=== PATIENT | male | born 1955 | race Caucasian/White ===

== ENCOUNTER 2018-10-08 06:07 | Observation (INO) | payer OTHER, MEDICARE ==
[~2018-10-08] VITALS: Ht 175.3 cm; Wt 76.9 kg
[~2018-10-08 06:07] MED LIST: AZITHROMYCIN500 MG PO; BACLOFEN10 MG PO; CARVEDILOL12.5 MG PO; CELEBREX200 MG PO; EFFEXOR PO; EFFEXOR XR150 MG PO; GABAPENTIN400 MG PO; IMITREX PO; LISINOPRIL-HCT1 EACH PO; LOTREL 5-20 MG1 EACH PO; OXYCONTIN PO; OXYCONTIN80 MG PO; PANTOPRAZOLE SO40 MG PO; PROTONIX PO; RAMIPRIL5 MG PO; SOMA PO; SOMA350 MG PO; ULTRAM50 MG PO
--- OUTSIDE RECORDS SUMMARY | 2018-10-08 06:12 | XMS REPORT | Continuity of Care Document ---
Author Author [facility] [place] Address Unknown Phone Unavailable Problems Problem Status Onset Date Classification Date Reported Comments Source Spasticity Active Problem 12/25/2017 Gregory Stileser Spinal cord injury, C1-C7, sequela Active Problem 12/25/2017 Gregory Stileser Thoracic radiculopathy Active Problem 12/25/2017 Gregory Mosquera Myositis of other site, unspecified myositis type Active Problem 12/25/2017 Gregory Eveline Myalgia Active Problem 12/25/2017 Gregory Eveline Cervical post-laminectomy syndrome Active Problem 12/25/2017 Gregory Mosquera Pain of thoracic facet joint Active Problem 12/25/2017 Gregory Mosquera Chronic pain syndrome Active Problem 12/25/2017 Gregory Mosquera 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 Problem 12/25/2017 Gregory Mosquera Medications Medication Details Route Status Patient Instructions Ordering Provider Order Date Source Amitriptyline HCl not defined Orally Active 100 MG Orally Fan 10/16/2016 Gregory Mosquera Baclofen not defined Intrathecal Active 10 MG/20ML Intrathecal Fan 10/16/2016 Gregory Mosquera Lisinopril-Hydrochlorothiazide not defined Orally Active 20-12.5 MG Orally Fan 10/16/2016 Gregory Mosquera Acetaminophen-Codeine not defined Orally Active 300-30 MG Orally Fan 10/16/2016 Gregory Mosquera Carvedilol not defined Orally Active 12.5 MG Orally Fan 10/16/2016 Gregory Mosquera Celecoxib not defined Orally Active 200 MG Orally Fan Gregory Mosquera Venlafaxine HCl ER not defined Orally Active 150 MG Orally Fan Gregory Mosquera Pantoprazole Sodium not defined Orally Active 40 MG Orally Fan Gregory Mosquera Carisoprodol not defined Orally Active 350 MG Orally Fan Gregory Mosquera Diazepam not defined Rectal Active 10 MG Rectal Fan Gregory Mosquera Tramadol HCl not defined Orally Active 50 MG Orally Fan Gregory Mosquera Ramipril not defined Orally Active 5 MG Orally [facility] Gregory Stileser OxyContin not defined Orally Active 80 MG Orally [facility] Gabapentin not defined Orally Active 400 MG Orally [facility] Gregory Stileser Gabapentin not defined Orally Active 400 MG Orally [facility] Gregory Stileser Ramipril not defined Orally Active 5 MG Orally [facility] Gregory Mosquera Venlafaxine HCl ER not defined Orally Active 150 MG Orally [facility] Carisoprodol not defined Orally Active 350 MG Orally [facility] Gregory Mosquera Celecoxib not defined Orally Active 200 MG Orally [facility] Pantoprazole Sodium not defined Orally Active 40 MG Orally [facility] OxyContin not defined Orally Active 80 MG Orally [facility] Tramadol HCl not defined Orally Active 50 MG Orally [facility] Diazepam not defined Rectal Active 10 MG Rectal [facility] Acetaminophen-Codeine Unknown Orally Active 300-30 MG Orally [facility] Carvedilol Unknown Orally Active 12.5 MG Orally [facility] Baclofen Unknown Intrathecal Active 10 MG/20ML Intrathecal [facility] Lisinopril-Hydrochlorothiazide Unknown Orally Active 20-12.5 MG Orally [facility] Amitriptyline HCl Unknown Orally Active 100 MG Orally [facility] Gregory Stileser Allergies, Adverse Reactions, Alerts Substance Category Reaction Severity Reaction type Status Date Reported Comments Source N.K.D.A. Adverse Reaction Info Not Available Adverse Reaction Active 05/17/2017 Gregory Mosquera Immunizations Immunization Date Given Site Status Last Updated Comments Source Results Order Name Results Value Reference Range Date Interpretation Comments Source Vital Signs Vital Sign Value Date Comments Source Weight 155 05/17/2017 Gregory Mosquera Height 67.4 05/17/2017 Gregory Stileser Temperature Oral (F) 97.5 F 05/17/2017 Gregory Stileser Heart Rate 78 05/17/2017 Gregory Mosquera Diastolic (mm Hg) 70 05/17/2017 Gregory Mosquera Systolic (mm Hg) 162 05/17/2017 Gregory Mosquera Weight 161.5 10/16/2016 Gregory Mosquera Height 67.4 10/16/2016 Gregory Mosquera Temperature Oral (F) 98.0 F 10/16/2016 Gregory Mosquera Heart Rate 88 10/16/2016 Gregory Mosquera Diastolic (mm Hg) 72 10/16/2016 Gregory Mosquera Systolic (mm Hg) 126 10/16/2016 Gregory Mosquera Height 67.4 08/02/2016 Gregory Mosquera Temperature Oral (F) 97.2 F 08/02/2016 Gregory Mosquera Diastolic (mm Hg) 80 08/02/2016 Gregory Mosquera Systolic (mm Hg) 160 08/02/2016 Gregory Mosquera Encounters Location Location Details Encounter Type Encounter Number Reason For Visit Attending Provider ADM Date DC Date Status Source Erik Mosquera MD POST OP PROCEDURE [id number] 08/02/2016 08/02/2016 Gregory Mosquera MD POST OP PROCEDURE [id number] 08/02/2016 08/02/2016 Gregory Mosquera MD POST OP PROCEDURE [id number] 08/02/2016 08/02/2016 Gregory Mosquera MD CX APPOINTMENT [id number] 08/31/2016 08/31/2016 Gregory Mosquera MD CX APPOINTMENT [id number] 08/31/2016 08/31/2016 Gregory Mosquera MD SCHEDULE A FU [id number] 09/21/2016 09/21/2016 Gregory Mosquera Procedures Procedure Code Date Perfomer Comments Source
--- OUTSIDE RECORDS SUMMARY | 2018-10-08 06:12 | XMS REPORT ---
Author Author Jori Chavira Organization [employer] Address Unknown Phone Unavailable Care Team Providers Care Premises Technician Name Role Phone Jori Chavira CP Unavailable Allergies No Known Allergies Problems Problem Type Condition Code Onset Dates Condition Status Problem Spasticity R25.2 Active Problem Spinal cord injury, C1-C7, sequela S14.109S Active Problem Thoracic radiculopathy M54.14 Active Problem Myositis of other site, unspecified myositis type M60.9 Active Problem Myalgia M79.1 Active Problem Cervical post-laminectomy syndrome M96.1 Active Problem Pain of thoracic facet joint M54.6 Active Problem Chronic pain syndrome G89.4 Active Problem Spondylosis of thoracic region without myelopathy or radiculopathy M47.814 Active Medications No Known Medications Results No Known Results Summary Purpose [facility] [employer] Submission
--- OUTSIDE RECORDS SUMMARY | 2018-10-08 06:12 | XMS REPORT ---
Author Author Jori Chavira Organization [employer] Address Unknown Phone Unavailable Care Team Providers Care Vinyl Dipper Name Role Phone Jori Chavira CP Unavailable [...] Medications Results No Known Results Summary Purpose [employer] Submission
--- OUTSIDE RECORDS SUMMARY | 2018-10-08 06:12 | XMS REPORT ---
Author Author Jori Chavira [facility] [employer] Address Unknown Phone Unavailable Care Team Providers Care Packer Dried Beef Name Role Phone Jori Chavira Unavailable Allergies, Adverse Reactions, Alerts Substance Reaction Event Type N.K.D.A. Info Not Available Non Drug Allergy Encounters Encounter Location Date POST OP PROCEDURE Erik Mosquera MD Aug 02, 2016 Problems Problem Type Condition ICD-9 Code Onset Dates Condition Status Assessment Thoracic radiculopathy M54.14 Active Problem Spasticity R25.2 Active Problem Spinal cord injury, C1-C7, sequela S14.109S Active Problem Myositis of other site, unspecified myositis type M60.9 Active Problem Myalgia M79.1 Active Problem Thoracic radiculopathy M54.14 Active Problem Spondylosis of thoracic region without myelopathy or radiculopathy M47.814 Active Problem Pain of thoracic facet joint M54.6 Active Problem Chronic pain syndrome G89.4 Active Problem Cervical post-laminectomy syndrome M96.1 Active Assessment Spinal cord injury, C1-C7, sequela S14.109S Active Assessment Spasticity R25.2 Active Assessment Cervical post-laminectomy syndrome M96.1 Active Assessment Spondylosis of thoracic region without myelopathy or radiculopathy M47.814 Active Assessment Pain of thoracic facet joint M54.6 Active Assessment Myalgia M79.1 Active Assessment Chronic pain syndrome G89.4 Active Assessment Myositis of other site, unspecified myositis type M60.9 Active Medications Medication Code System Code Instructions Start Date End Date Status Dosage Tramadol HCl [facility] [address]-68 50 MG Orally Active Unknown Gabapentin [facility] [address]-26 400 MG Orally Active Unknown Acetaminophen-Codeine [facility] [address]-47 300-30 MG Orally Active Unknown Celecoxib [facility] [address]-88 200 MG Orally Active Unknown Venlafaxine HCl ER [facility] [address]-19 150 MG Orally Active Unknown OxyContin [facility] [address]-38 80 MG Orally Active Unknown Diazepam [facility] [address]-76 10 MG Rectal Active Unknown Carvedilol [facility] [address]-26 12.5 MG Orally Active Unknown Carisoprodol [facility] [address]-04 350 MG Orally Active Unknown Baclofen [facility] [address]-40 10 MG/20ML Intrathecal Active Unknown Lisinopril-Hydrochlorothiazide [facility] [address]-05 20-12.5 MG Orally Active Unknown Pantoprazole Sodium [facility] [address]-45 40 MG Orally Active Unknown Ramipril [facility] [address]-81 5 MG Orally Active Unknown Amitriptyline HCl [facility] [address]-69 100 MG Orally Active Unknown Social History Social History Element Qualifiers Date Reported Diet: no. Aug 02, 2016 Tobacco Use: . Are you a:: never smoker Aug 02, 2016 Pets: none. Aug 02, 2016 Marital Status: . Aug 02, 2016 Sexual Hx: . Had sex in the last 12 months (vaginal, oral, or anal)?: No Aug 02, 2016 Caffeine: no. Aug 02, 2016 Exercise: no. Aug 02, 2016 Alcohol: no. Aug 02, 2016 Travel outside [place]: no. Aug 02, 2016 Occup. exposure: none. Aug 02, 2016 Occupation: unemployed. Aug 02, 2016 Vital Signs Date/Time: Aug 02, 2016 Height 67.4 in Temperature 97.2 F Blood Pressure Diastolic 80 mm Hg Blood Pressure Systolic 160 mm Hg Summary Purpose [employer] Submission
--- OUTSIDE RECORDS SUMMARY | 2018-10-08 06:12 | XMS REPORT ---
Author Author Jori Chavira Organization [employer] Address Unknown Phone Unavailable Care Team Providers Care Hoistman Name Role Phone Jori Chavira CP Unavailable [...] Medications Results No Known Results Summary Purpose [employer] Submission
--- OUTSIDE RECORDS SUMMARY | 2018-10-08 06:12 | XMS REPORT ---
Author Author Jori Chavira Organization [employer] Address Unknown Phone Unavailable Care Team Providers Care Flour Mixer Helper Name Role Phone Jori Chavira CP Unavailable [...] Active Problem Cervical post-laminectomy syndrome M96.1 Active Medications No Known Medications Results No Known Results Summary Purpose [employer] Submission
--- OUTSIDE RECORDS SUMMARY | 2018-10-08 06:12 | XMS REPORT ---
Author Author Jori Chavira Organization [employer] Address Unknown Phone Unavailable Care Team Providers Care Certified Fire Investigator Name Role Phone Jori Chavira CP Unavailable [...] Medications Results No Known Results Summary Purpose [employer] Submission
--- OUTSIDE RECORDS SUMMARY | 2018-10-08 06:12 | XMS REPORT ---
Author Author Jori Chavira Organization [employer] Address Unknown Phone Unavailable Care Team Providers Care Resident Care Director Name Role Phone Jori Chavira Unavailable Allergies, Adverse Reactions, Alerts Substance Reaction Event Type N.K.D.A. Info Not Available Non Drug Allergy Problems Problem Type Condition Code Onset Dates Condition Status Assessment Thoracic [...] without myelopathy or radiculopathy M47.814 Active Assessment Spinal cord injury, C1-C7, sequela [...] Instructions Start Date End Date Status Dosage Celecoxib [facility] 84219753035 200 MG Orally Active not defined Venlafaxine HCl ER ND 47051441286 150 MG Orally Active not defined Pantoprazole Sodium [facility] 64753509694 40 MG Orally Active not defined Carisoprodol [facility] 19392999961 350 MG Orally Active not defined Diazepam [facility] 93962951103 10 MG Rectal Active not defined Tramadol HCl ND 48273713040 50 MG Orally Active not defined Ramipril [facility] 11131443869 5 MG Orally Active not defined OxyContin [facility] 28734691413 80 MG Orally Active not defined Gabapentin [facility] 18650764726 400 MG Orally Active not defined Vital Signs Date/Time: May 17, 2017 BMI 23.99 Index Weight 155 lbs Height 67.4 in Temperature 97.5 F Cardiac Monitoring Heart Rate 78 /min Blood Pressure Diastolic 70 mm Hg Blood Pressure Systolic 162 mm Hg Results No Known Results Summary Purpose [employer] Submission
--- OUTSIDE RECORDS SUMMARY | 2018-10-08 06:12 | XMS REPORT ---
Author Author Jori Chavira Organization [employer] Address Unknown Phone Unavailable Care Team Providers Care Fruit Canner Name Role Phone Jori Chavira CP Unavailable [...] Medications Results No Known Results Summary Purpose [employer] Submission
--- OUTSIDE RECORDS SUMMARY | 2018-10-08 06:12 | XMS REPORT ---
Author Author Jori Chavira Organization [employer] Address Unknown Phone Unavailable Care Team Providers Care Office Messenger Name Role Phone Jori Chavira CP Unavailable [...] Problem Cervical post-laminectomy syndrome M96.1 Active Medications Medication Code System Code Instructions Start Date End Date Status Dosage Gabapentin [facility] [address]-39 400 MG Orally Active not defined Ramipril [facility] [place] [address]-04 5 MG Orally Active not defined Venlafaxine HCl ER [facility] [place] [address]-95 150 MG Orally Active not defined Carisoprodol [facility] [address]-50 350 MG Orally Active not defined Celecoxib [facility] [place] [address]-78 200 MG Orally Active not defined Pantoprazole Sodium [facility] [address]-20 40 MG Orally Active not defined OxyContin [facility] [address]-93 80 MG Orally Active not defined Tramadol HCl [facility] [address]-77 50 MG Orally Active not defined Diazepam [facility] [address]-93 10 MG Rectal Active not defined Results No Known Results Summary Purpose [employer] Submission
--- OUTSIDE RECORDS SUMMARY | 2018-10-08 06:12 | XMS REPORT ---
Author Author Jori Chavira Organization [employer] Address Unknown Phone Unavailable Care Team Providers Care Soldering Machine Operator Name Role Phone Jori Chavira Unavailable Encounters Encounter Location Date POST OP PROCEDURE Erik Mosquera MD Aug 02, 2016 CX APPOINTMENT Erik Mosquera MD Aug 31, 2016 Problems Problem Type Condition ICD-9 Code Onset Dates Condition Status Problem Spasticity [...] Active Problem Cervical post-laminectomy syndrome M96.1 Active Social History Social History Element Qualifiers Date Reported Diet: no. Aug 31, 2016 Tobacco Use: . Are you a:: never smoker Aug 31, 2016 Pets: none. Aug 31, 2016 Marital Status: . Aug 31, 2016 Sexual Hx: . Had sex in the last 12 months (vaginal, oral, or anal)?: No Aug 31, 2016 Caffeine: no. Aug 31, 2016 Exercise: no. Aug 31, 2016 Alcohol: no. Aug 31, 2016 Travel outside [place]: no. Aug 31, 2016 Occup. exposure: none. Aug 31, 2016 Occupation: unemployed. Aug 31, 2016 Summary Purpose [employer] Submission
--- OUTSIDE RECORDS SUMMARY | 2018-10-08 06:12 | XMS REPORT ---
Author Author Jori Chavira Organization [employer] Address Unknown Phone Unavailable Care Team Providers Care Cardiology Clinical Consultant Name Role Phone Jori Chavira Unavailable Encounters Encounter Location Date POST OP PROCEDURE Erik Mosquera MD Aug 02, 2016 CX APPOINTMENT Erik Mosquera MD Aug 31, 2016 SCHEDULE A FU Erik Mosquera MD September 21, 2016 Problems Problem Type Condition ICD-9 Code [...]
[2018-10-08] MEDS ORDERED: SODIUM CHLORIDE 0.9% 1000ML 1,000 ML IV STA (06:13)
[2018-10-08] MEDS ORDERED: PANTOPRAZOLE 40 MG 10ML VIAL IV STA (06:13)
[2018-10-08] MEDS ORDERED: ONDANSETRON HCL INJ 2MG/ML 2ML 2 MG/ML VIAL IV ONE (06:15)
[2018-10-08] MEDS ORDERED: HYDROMORPHONE 2MG/ML 2 MG/ML ML IV ONE ×2 (06:15→09:30)
[2018-10-08] MEDS ORDERED: DIATRIZOATE MEGL/DIATRIZOA SOD 30 ML BTL PO ONE (06:43)
[2018-10-08 08:06] LABS: BASOPHILS % 0.3 % (0.0-1.0); EOSINOPHILS % 0.1 % (0.0-6.0); HEMATOCRIT 33.4 % (38.2-49.6); HEMOGLOBIN 10.2 g/dL (14.0-18.0); LYMPHOCYTES # (AUTO) 1.3 (1.0-3.2); LYMPHOCYTES % 12.4 % (18.0-39.1); MEAN CORPUSCULAR HEMOGLOBIN 25.4 pg (28-32); MEAN CORPUSCULAR HGB CONC 30.5 g/dL (31-35); MEAN CORPUSCULAR VOLUME 83.3 fL (81-99); MONOCYTES # (AUTO) 0.4 (0.2-0.8); NEUTROPHILS # (AUTO) 8.4 (2.1-6.9); NEUTROPHILS % 82.8 % (38.7-80.0); PLATELET COUNT 375 x10e3/uL (140-360); RED BLOOD COUNT 4.01 x10e6/uL (4.3-5.7); RED CELL DISTRIBUTION WIDTH 16.9 % (11.7-14.4)
[2018-10-08 08:22] LABS: ALANINE AMINOTRANSFERASE 11 IU/L (0-55); ALKALINE PHOSPHATASE 77 IU/L (40-150); AMYLASE 108 U/L (25-125); ANION GAP 14.6 mmol/L (8-16); BLOOD UREA NITROGEN 15 mg/dL (7-26); BUN/CREATININE RATIO 17 (6-25); CALCIUM 9.9 mg/dL (8.4-10.2); CARBON DIOXIDE 24 mmol/L (22-29); CHLORIDE 102 mmol/L (98-107); EST GLOMERULAR FILTRATION RATE > 60 ML/MIN (60-); GLUCOSE 121 mg/dL (74-118); LIPASE 20 U/L (8-78); MAGNESIUM 1.7 MG/DL (1.3-2.1); POTASSIUM 3.6 mmol/L (3.5-5.1); SODIUM 137 mmol/L (136-145)
[2018-10-08] MEDS ORDERED: HYDROMORPHONE 1MG/1ML INJ IV STA (09:22)
[2018-10-08 09:23] LABS: CREATINE KINASE MB 2.3 ng/mL (0-5.0)
[2018-10-08 09:28] LABS: BACTERIA,URINE RARE /HPF; EPITHELIAL CELLS,URINE FEW /LPF
[2018-10-08 09:29] LABS: CLARITY,URINE CLEAR (CLEAR); COLOR,URINE YELLOW (YELLOW); RBC,URINE 0-5 /HPF (0-5); WBC,URINE (MAN) 0-5 /HPF (0-5)
[2018-10-08] MEDS ORDERED: ONDANSETRON HCL INJ 2MG/ML 2ML 2 MG/ML VIAL IV STA ×2 (09:29→10:05)
[2018-10-08 09:30] LABS: KETONES,URINE 3+ (NEGATIVE); LEUKOCYTE ESTERASE ,URINE NEGATIVE (NEGATIVE); NITRITE,URINE NEGATIVE (NEGATIVE); PROTEIN,URINE DIPSTICK TRACE (NEGATIVE); URINE UROBILINOGEN 1 mg/dL (0.2 - 1)
[2018-10-08 09:31] LABS: BILIRUBIN,URINE 1+ (NEGATIVE)
[2018-10-08] MEDS ORDERED: HYDROMORPHONE 2MG/ML 2 MG/ML ML ONE (09:33)
[2018-10-08] MEDS ORDERED: ONDANSETRON HCL INJ 2MG/ML 2ML 2 MG/ML VIAL ONE (09:34)
--- NOTE | 2018-10-08 09:56 | Diagnostic Imaging Report ---
PROCEDURE: CT ABDOMEN AND PELVIS WITH CONTRAST TECHNIQUE: The abdomen and pelvis were scanned utilizing a multidetector helical scanner from the diaphragm to the lesser trochanter after the IV administration of 100 cc of Isovue 370 and the oral administration of water. Coronal and sagittal multiplanar reformations were obtained. DLP: 319.07 mGy-cm COMPARISON: [facility], CT, CT ABDOMEN/PELVIS W, 05/07/2014, 18:05. INDICATIONS: NAUSEA, VOMTING FINDINGS: LOWER THORAX: There is coronary artery calcification. Minimal right middle and lower lobe atelectasis. HEPATOBILIARY: Mild fatty infiltration of the liver. No focal hepatic lesions. No biliary ductal dilatation. SPLEEN: No splenomegaly. PANCREAS: No focal masses or ductal dilatation. ADRENALS: No adrenal nodules. KIDNEYS/URETERS: No hydronephrosis, stones, or solid mass lesions. PELVIC ORGANS/BLADDER: Unremarkable. PERITONEUM / RETROPERITONEUM: No free air or fluid. LYMPH NODES: No lymphadenopathy. VESSELS: There is atherosclerotic vascular calcification. GI TRACT: Mildly prominent loops of small bowel may represent enteritis. BONES AND SOFT TISSUES: Vertebroplasty cement within the L1 and L3 vertebral body. Compression deformity of T12 is unchanged. Bilateral total hip replacements render a significant amount of streak artifact of the pelvis. Injection granulomas in the gluteal regions. IMPRESSION: 1. Mildly prominent loops of small bowel may represent enteritis. 2. Mild fatty infiltration of the liver without focal abnormality. Rene You D.O. Dictated by: Rene You D.O. on 10/08/2018 at 9:56 Electronically approved by: Rene You D.O. on 10/08/2018 at 9:56
[2018-10-08] MEDS ORDERED: MORPHINE SULFATE 2 MG/ML SYR 1ML IV PRN (10:45)
--- OUTSIDE RECORDS SUMMARY | 2018-10-08 10:58 | XMS REPORT ---
Author Author [facility] Address Unknown Phone Unavailable Care Team Providers Care Garnetter Name Role Phone Fifi LUND Unavailable Unavailable Problems This patient has no known problems. Allergies, Adverse Reactions, Alerts This patient has no known allergies or adverse reactions. Medications This patient has no known medications. Results Test Description Test Time Test Comments Text Results Atomic Results Result Comments CT ABDOMEN/PELVIS W 2018-10-08 09:56:00 [place] [address] Patient Name: SHARRI SAUER MR #: [id number] : 1955 Age/Sex: 62/M Req #: [id number] Adm Physician: Ordered by: GREG ESQUIVEL MD Report #: [id number] Location: ER Room/Bed: Procedure: [id number] CT/CT ABDOMEN/PELVIS W Exam Date: 10/08/18 Exam Time: 919 REPORT STATUS: Signed PROCEDURE: CT ABDOMEN AND PELVIS WITH CONTRAST TECHNIQUE: The abdomen and pelvis were scanned utilizing a multidetector helical scanner from the diaphragm to the lesser trochanter after the IV administration of 100 cc of Isovue 370 and the oral administration of water. Coronal and sagittal multiplanar reformations were obtained. DLP: 319.07 mGy-cm COMPARISON: [facility], CT, CT ABDOMEN/PELVIS W, 05/07/2014, 18:05. INDICATIONS: NAUSEA, VOMTING FINDINGS: LOWER THORAX: There is coronary artery calcification. Minimal right middle and lower lobe atelectasis. HEPATOBILIARY: Mild fatty infiltration of the liver. No focal hepatic lesions. No biliary ductal dilatation. SPLEEN: No splenomegaly. PANCREAS: No focal masses or ductal dilatation. ADRENALS: No adrenal nodules. KIDNEYS/URETERS: No hydronephrosis, stones, or solid mass lesions. PELVIC ORGANS/BLADDER: Unremarkable. PERITONEUM / RETROPERITONEUM: No free air or fluid. LYMPH NODES: No lymphadenopathy. VESSELS: There is atherosclerotic vascular calcification. GI TRACT: Mildly prominent loops of small bowel may represent enteritis. BONES AND SOFT TISSUES: Vertebroplasty cement within the L1 and L3 vertebral body. Compression deformity of T12 is unchanged. Bilateral total hip replacements render a significant amount of streak artifact of the pelvis. Injection granulomas in the gluteal regions. IMPRESSION: 1. Mildly prominent loops of small bowel may represent enteritis. 2. Mild fatty infiltration of the liver without focal abnormality. Chichi You D.O. Dictated by: Chichi You D.O. on 10/08/2018 at 9:56 Electronically approved by: Chichi You D.O. on 10/08/2018 at 9:56 Dictated By: CHICHI YOU DO [id number] Transcribed By: KAVYA on 10/08/18 0956 COPY TO: GREG ESQUIVEL MD
[2018-10-08] MEDS: SODIUM CHLORIDE 0.9% 1000ML 1,000 ML IV SCH ×2 (11:10→20:35)
--- NOTE | 2018-10-08 12:12 | NUR ---
Walking rounds with JOELLEN Marr. Patient in no distress at this time.
--- NOTE | 2018-10-08 12:13 | NUR ---
Bedside rounds completed with Иван CUENCA. Assumed care, pt is in no acute distress at this time.
[2018-10-08] MEDS ORDERED: SODIUM CHLORIDE 0.9% 50ML 50 ML ONE (13:04)
[2018-10-08] MEDS ORDERED: IOPAMIDOL 370 MG/ML 200 ML INFUS..BTL INJ ONE (13:04)
[2018-10-08] MEDS ORDERED: MORPHINE SULFAT30 M2 PO (13:31)
[2018-10-08] MEDS ORDERED: CYCLOBENZAPRINE5 MG (13:31)
[2018-10-08] MEDS: ONDANSETRON HCL INJ 2MG/ML 2ML 2 MG/ML VIAL IV PRN ×3 (13:52→21:43)
[2018-10-08] MEDS: HYDROCODONE/APAP 10MG-325MG TAB PO PRN ×2 (14:03→20:34)
[2018-10-08] MEDS: CYCLOBENZAPRINE HCL 10 MG TAB PO PRN (14:04)
--- NOTE | 2018-10-08 17:32 | NUR ---
Recvd patient from ER in bed, AAOx3, on IV fluids, resp even and unlabored, c/o pain 8/10 on lower back. Not in any distress, keep monitoring, call light in reach, bed alrm ON
[2018-10-08] MEDS: MORPHINE SULFATE INJ 4 MG/ML INJ 1ML IV PRN ×2 (17:42→21:43)
[2018-10-08 17:49] VITALS: BP 140/65
[2018-10-08 20:00] VITALS: BP 147/65
[2018-10-08 20:05] VITALS: BP 147/65
[2018-10-09] VITALS (8 sets, daily range): BP systolic 136–167; BP diastolic 65–75
[2018-10-09] MEDS: MORPHINE SULFATE INJ 4 MG/ML INJ 1ML IV PRN ×5 (01:40→17:15)
[2018-10-09] MEDS: ONDANSETRON HCL INJ 2MG/ML 2ML 2 MG/ML VIAL IV PRN ×5 (01:40→17:15)
[2018-10-09] MEDS: SODIUM CHLORIDE 0.9% 1000ML 1,000 ML IV SCH ×4 (02:29→20:10)
[2018-10-09] MEDS: CYCLOBENZAPRINE HCL 10 MG TAB PO PRN ×3 (02:29→23:06)
[2018-10-09] MEDS: HYDROCODONE/APAP 10MG-325MG TAB PO PRN ×3 (02:30→23:07)
--- NOTE | 2018-10-09 07:20 | NUR ---
Walking rounds done and report received. patient is awake and alertx3 in NAD. POC discussed. NPO as ordered. Patient instructed to call for assistance as needed and verbalized understanding.
--- NOTE | 2018-10-09 12:20 | NUR ---
SOCIAL WORK INITIAL ASSESSMENT Machine Scallop Cutter to bedside to discuss plan of care with patient/family. CM/SW role and care transitions discussed. Anticipated discharge plan discussed along with duration of care. CM/SW discussed patients right to make decisions in care. CM/SW work hours given. Patient lives: IN HOUSE WITH FAMILY Admit/Transfer: VIA ED FROM HOME POA/Emergency contact: TAMIKA SAUER [phone] Current/Previous Home Health: NONE PCP/Follow-up Care: Rhiannon FOX Current/Previous DME: KIM Other Services: NONE Employment Status: RETIRED Areas of Concerns: NONE Referral Needs: NONE Education Needs: NONE IMM/FLORES given and signed (if applicable): UPON ADMISSION Goal for discharge: RETURN HOME CM/SW left business card at the bedside with contact information. Name and number was also written on the patients whiteboard. Patient verbalized understanding of discussion. CM will follow-up with ongoing discharge and transition of care needs.
--- NOTE | 2018-10-09 14:52 | NUR ---
Nutrition Screen Note RD Recommendation for Physician: -Rec advancing to GI soft diet as medically appropriate Plan of Care: RD following, monitoring for tolerance and adequacy Nutrition reason for involvement: Nutrition Risk Trigger MST Primary Diagnose(s): gastroenteritis PMH: no H&P in chart Ht: 69in Wt: 169.44lb BMI: 25kg/m2 IBW: 160lb RD Assessment: (10/09) Chart reviewed. Labs and meds reviewed. 62yo M, who was admitted for gastroenteritis. Visited pt in the room. Pt tolerated full liquid diet for lunch today. Pt complained of some nausea and meds were given. No vomiting episode noted. Pt denied any chewing or swallowing difficulty. No recent weight loss reported. Will continue to monitor and follow. Current Diet: full liquid Malnutrition Evaluation (10/09) The patient does not meet criteria for a specified degree of malnutrition at this time. Will re-evaluate at follow-up as appropriate. Diet Education Needs Assessment: Diet education not indicated. Nutrition Care Level: low Signed: Doris Wong, MS, RD, LD
[2018-10-09] MEDS ORDERED: GABAPENTIN 400 MG CAP PO SCH (15:00)
[2018-10-09] MEDS: GABAPENTIN 300 MG CAP PO SCH ×2 (15:09→20:10)
[2018-10-09] MEDS: VENLAFAXINE HCL 75 MG CAPCR PO SCH (15:09)
[2018-10-09] MEDS ORDERED: MORPHINE SULFATE 30 MG TAB ER PO SCH ×2 (17:00→21:00)
--- NOTE | 2018-10-09 18:20 | NUR ---
Dr. Dorina Fischer paged to clarify frequency of home medication. Awaiting call back.
--- NOTE | 2018-10-09 20:10 | NUR ---
Return call from Dr Rhiannon Fischer: Current order for MS contin ER 30 mg po Q 12 hrs and Flexeril 10 mg po BID PRN. Patient reports that takes MS contin TID and Flexeril 10 mg po TID PRN. Resume home medications how patient reports taking at home. MS Contin ER 30 mg tab 1 po TID and Flexeril 10 mg po TID PRN for spasms.
[2018-10-10] VITALS (7 sets, daily range): BP systolic 117–166; BP diastolic 55–71
[2018-10-10] MEDS: MORPHINE SULFATE 30 MG TAB ER PO SCH ×3 (04:00→21:42)
--- NOTE | 2018-10-10 07:23 | NUR ---
PT ALERT RESP EVEN, AND UNLABORED NO DISTRESS NOTED PT ABLE TO MAKE NEEDS KNOWN, CALL LIGHT IN REACH FAMILY AT BEDSIDE.
[2018-10-10] MEDS: RAMIPRIL 5 MG CAP PO SCH (08:25)
[2018-10-10] MEDS: VENLAFAXINE HCL 75 MG CAPCR PO SCH (08:25)
[2018-10-10] MEDS: CELECOXIB 200 MG CAP PO SCH (08:25)
[2018-10-10] MEDS: GABAPENTIN 300 MG CAP PO SCH ×3 (08:25→21:42)
[2018-10-10] MEDS: PANTOPRAZOLE SOD 40 MG TABEC PO SCH (08:25)
[2018-10-10] MEDS: ONDANSETRON HCL INJ 2MG/ML 2ML 2 MG/ML VIAL IV PRN ×2 (08:29→18:14)
[2018-10-10] MEDS: MORPHINE SULFATE INJ 4 MG/ML INJ 1ML IV PRN ×2 (08:32→18:14)
--- NOTE | 2018-10-10 08:57 | Diagnostic Imaging Report ---
EXAMINATION: CHEST SINGLE (PORTABLE) INDICATION: Cough ^cough ^[id number] ^0835 ^Y COMPARISON: CT scan 01/26/2017 FINDINGS: TUBES and LINES: None. LUNGS: Lungs are well inflated. Perihilar peribronchial hazy opacity could be due to bronchitis. Mild chronic appearing changes in the lung. There is no evidence of pneumonia or pulmonary edema. PLEURA: No pleural effusion or pneumothorax. HEART AND MEDIASTINUM: The cardiomediastinal silhouette is unremarkable. BONES AND SOFT TISSUES: No acute osseous lesion. Soft tissues are unremarkable. UPPER ABDOMEN: No free air under the diaphragm. IMPRESSION: Perihilar peribronchial hazy opacity could be due to bronchitis. Signed by: Dr. Henry Cordova M.D. on 10/10/2018 8:53 AM
[2018-10-10] MEDS ORDERED: NON-FORMULARY MEDICATION (Celecoxib (Celebrex) 200 MG) PO SCH (09:00)
[2018-10-10] MEDS ORDERED: NON-FORMULARY MEDICATION (Venlafaxine Hcl (Effexor Xr) 150 MG) PO SCH (09:00)
[2018-10-10] MEDS ORDERED: VENLAFAXINE HCL 75 MG CAPCR PO SCH (09:00)
[2018-10-10] MEDS: SODIUM CHLORIDE 0.9% 1000ML 1,000 ML IV SCH ×2 (11:21→18:00)
[2018-10-10] MEDS: CYCLOBENZAPRINE HCL 10 MG TAB PO PRN (11:58)
[2018-10-10] MEDS: HYDROCODONE/APAP 10MG-325MG TAB PO PRN (16:03)
--- NOTE | 2018-10-10 19:31 | NUR ---
REPORT GIVEN TO ONCOMING NURSE FOR CONTINUED CARE
--- NOTE | 2018-10-10 19:32 | NUR ---
received patient aaox3, ambulatory. no distress observed. no needs voiced. bed locked and in lowest position, call light within easy reach.
[2018-10-11 00:30] VITALS: BP 132/63
[2018-10-11] MEDS: MORPHINE SULFATE INJ 4 MG/ML INJ 1ML IV PRN ×2 (01:02→08:16)
[2018-10-11] MEDS: ONDANSETRON HCL INJ 2MG/ML 2ML 2 MG/ML VIAL IV PRN ×2 (01:03→08:17)
[2018-10-11] MEDS: SODIUM CHLORIDE 0.9% 1000ML 1,000 ML IV SCH ×2 (02:28→10:32)
[2018-10-11 04:30] VITALS: BP 130/61
[2018-10-11] MEDS: MORPHINE SULFATE 30 MG TAB ER PO SCH ×2 (04:45→11:04)
[2018-10-11] MEDS: GABAPENTIN 300 MG CAP PO SCH (08:16)
[2018-10-11] MEDS: PANTOPRAZOLE SOD 40 MG TABEC PO SCH (08:16)
[2018-10-11] MEDS: VENLAFAXINE HCL 75 MG CAPCR PO SCH (08:16)
[2018-10-11] MEDS: CELECOXIB 200 MG CAP PO SCH (08:16)
[2018-10-11] MEDS: RAMIPRIL 5 MG CAP PO SCH (08:16)
--- NOTE | 2018-10-11 11:38 | NUR ---
CALLED DR. Dorina FOX'S OFFICE FOR MEDICATION DISCHARGE ORDERS.
[2018-10-11 11:45] VITALS: BP 159/72
[2018-10-11 12:00] VITALS: BP 153/68
--- NOTE | 2018-10-11 12:03 | NUR ---
CALLED DR. Dorina FOX, 2ND TIME FOR DISCHARGE ORDERS FOR PATIENT.
== END 2018-10-11 13:01 | disposition home or self-care (01) ==
LOC: ER 06:07 → ERHOLD 10:32 → IMCU 17:12
DX: K52.9 Noninfective gastroenteritis and colitis, unspecified (principal); E86.0 Dehydration; G89.29 Other chronic pain
CPT/HCPCS: 36415; 71045; 74177; 80053; 81001; 82150; 82550; 82553; 83690; 83735; 83880; 84484; 85025; 87400; 93005; 99284; C9113; G0378 ×4; J1170; J2270 ×4; J2405 ×4; J7030 ×4; Q9967; S0164 ×2

== ENCOUNTER → 2022-11-15 | Day surgery (SDC) | payer MEDICARE, OTHER ==
[2022-11-09 11:07] LABS: BASOPHILS # (AUTO) 0.1 (0.0-0.1); BASOPHILS % 0.8 % (0.0-1.0); EOSINOPHILS # (AUTO) 0.2 (0.0-0.4); EOSINOPHILS % 2.1 % (0.0-6.0); HEMATOCRIT 32.3 % (38.2-49.6); HEMOGLOBIN 10.3 g/dL (14.0-18.0); LYMPHOCYTES # (AUTO) 2.8 (1.0-3.2); LYMPHOCYTES % 37.8 % (18.0-39.1); MEAN CORPUSCULAR HEMOGLOBIN 30.8 pg (28-32); MEAN CORPUSCULAR HGB CONC 31.9 g/dL (31-35); MEAN CORPUSCULAR VOLUME 96.7 fL (81-99); MONOCYTES # (AUTO) 0.4 (0.2-0.8); MONOCYTES % 5.9 % (4.4-11.3); NEUTROPHILS % 53.1 % (38.7-80.0); PLATELET COUNT 251 x10e3/uL (140-360); RED BLOOD COUNT 3.34 x10e6/uL (4.3-5.7); RED CELL DISTRIBUTION WIDTH 15.3 % (11.7-14.4)
[~2022-11-15] MED LIST changes: +ASPIRIN81 MG PO; +ATORVASTATIN CA20 MG PO; +CYCLOBENZAPRINE5 MG PO; +FENTANYL CITRATE/PF 100MCG/2 ML INJ ONE; +KETAMINE HCL INJ 50 MG/ML 10 ML VIAL ONE; +LACTATED RINGER'S 1,000 ML ONE; +LIDOCAINE HCL 2% LOCAL INJ 5 ML SDV VIAL INJ ONE; +LOSARTAN POTASS25 MG PO; +MORPHINE SULFAT30 M2 PO; +NORCO 10-325 T1 EACH PO; +PHENYLEPHRINE HCL 1% 10 MG/ML VIAL ONE; +PROPOFOL IV EMULSION 10 MG/ML 20 ML VIAL ONE; +SUCRALFATE1 GM PO
[2022-11-15 11:30] VITALS: BP 140/90
== END | disposition home or self-care (01) ==
LOC: OR 07:50
PROVIDERS: ATTEND Internal Medicine Gastroenterology
DX: K22.10 Ulcer of esophagus without bleeding (principal); K62.1 Rectal polyp; K29.50 Unspecified chronic gastritis without bleeding; K25.9 Gastric ulcer, unspecified as acute or chronic, without hemorrhage or perforation; K44.9 Diaphragmatic hernia without obstruction or gangrene; K62.5 Hemorrhage of anus and rectum; K57.30 Diverticulosis of large intestine without perforation or abscess without bleeding; K64.4 Residual hemorrhoidal skin tags; K64.8 Other hemorrhoids; Z71.3 Dietary counseling and surveillance; I25.2 Old myocardial infarction; I10 Essential (primary) hypertension; Z01.810 Encounter for preprocedural cardiovascular examination; Z01.812 Encounter for preprocedural laboratory examination; Z79.82 Long term (current) use of aspirin; Z79.899 Other long term (current) drug therapy; Z68.25 Body mass index [BMI] 25.0-25.9, adult; Z95.1 Presence of aortocoronary bypass graft
CPT/HCPCS: 36415; 43239; 43450; 45380; 85025; 88305; 88342; 93005; C9113; J2001; J2370; J2704; J3010; J7121; 45378; 88304; 88312

== ENCOUNTER → 2022-11-27 | Outpatient (CLI) | payer MEDICARE, OTHER ==
[~2022-11-27] MED LIST changes: -FENTANYL CITRATE/PF 100MCG/2 ML INJ ONE; -KETAMINE HCL INJ 50 MG/ML 10 ML VIAL ONE; -LACTATED RINGER'S 1,000 ML ONE; -LIDOCAINE HCL 2% LOCAL INJ 5 ML SDV VIAL INJ ONE; -PHENYLEPHRINE HCL 1% 10 MG/ML VIAL ONE; -PROPOFOL IV EMULSION 10 MG/ML 20 ML VIAL ONE
[2022-11-27 14:35] LABS: CREATININE, SERUM 1.05 mg/dL (0.72-1.25)
== END ==
LOC: CT 13:42
PROVIDERS: ATTEND Internal Medicine Gastroenterology
DX: K22.10 Ulcer of esophagus without bleeding (principal)
CPT/HCPCS: 36415; 70491; 82565; 84520